=== PATIENT | male | born 1995 | race Caucasian/White ===

== ENCOUNTER 2018-09-01 21:17 | Emergency (ER) | payer MEDICAID ==
[~2018-09-01] VITALS: Ht 188 cm; Wt 54.8 kg
[2018-09-01 21:26] VITALS: BP 130/77
[2018-09-01] MEDS ORDERED: TETanus/Pertussis (Acell)/Diphther VAC/PF (Tdap-Adult) 0.5ml syringe IM ONE (22:15)
[2018-09-01] MEDS ORDERED: LIDOcaine 1.5% w/epinephrine 1:200,000 5ml ampul IJ ONE (22:15)
[2018-09-01] MEDS ORDERED: CEPH-571 PO (22:40)
== END 2018-09-01 22:59 | disposition home or self-care (01) ==
LOC: ER 21:18
DX: S61.411A Laceration without foreign body of right hand, initial encounter (principal); Z79.2 Long term (current) use of antibiotics; W25.XXXA Contact with sharp glass, initial encounter; Y93.89 Activity, other specified; Y92.89 Other specified places as the place of occurrence of the external cause; Y99.8 Other external cause status
CPT/HCPCS: 12001; 90471; 90715; 99283; J3490

== ENCOUNTER 2018-09-06 20:48 | Emergency (ER) | payer MEDICAID ==
[~2018-09-06] VITALS: Ht 188 cm; Wt 68.2 kg
[~2018-09-06 20:48] MED LIST: CEPH-571 PO
[2018-09-06 20:53] VITALS: BP 129/68
== END 2018-09-06 21:56 | disposition home or self-care (01) ==
LOC: ER 20:49
DX: S61.412D Laceration without foreign body of left hand, subsequent encounter (principal); Z88.8 Allergy status to other drugs, medicaments and biological substances; W25.XXXD Contact with sharp glass, subsequent encounter
CPT/HCPCS: 99281

== ENCOUNTER 2019-01-28 19:37 | Emergency (ER) | payer MEDICAID ==
[~2019-01-28] VITALS: Ht 188 cm; Wt 70.0 kg
[2019-01-28 19:38] VITALS: BP 138/79
[2019-01-28] MEDS ORDERED: HYDROcodone/acetaminophen 5mg/325mg tablet PO ONE (20:25)
--- NOTE | 2019-01-28 20:37 | NUR ---
BIOINFORMATICIAN WILL PROVIDING WOUND CARE AND ENOUGH BANDAGE FOR PT TO BE ABLE TO CHANGE DRESSING AT HOME. PT UNDERSTOOD DRESSING INSTRUCTIONS FROM TECH.
== END 2019-01-28 20:47 | disposition home or self-care (01) ==
LOC: ER 19:37
DX: S61.211A Laceration without foreign body of left index finger without damage to nail, initial encounter (principal); Z79.899 Other long term (current) drug therapy; W26.0XXA Contact with knife, initial encounter; Y93.G1 Activity, food preparation and clean up; Y92.89 Other specified places as the place of occurrence of the external cause; Y99.8 Other external cause status
CPT/HCPCS: 99282